=== PATIENT | male | born 1980 | race Caucasian/White ===

== ENCOUNTER → 2019-10-22 11:49 | Outpatient (CLI) | payer OTHER, SELFPAY ==
[2019-10-22 15:15] LABS: Absolute Lymphocyte Count 1.74 X10^3/uL (0.83-4.51); Absolute Neutrophil Count 3.1 X10^3/uL (2.0-7.7); Basophil# 0.03 X10^3/uL; Basophil% 0.6 % (0-1); Eosinophil# 0.09 X10^3/uL; Eosinophils% 1.7 % (0-5); Hematocrit 46.3 % (40-54); Hemoglobin 15.4 g/dL (13.0-16.5); Lymphocyte # 1.74 X10^3/ul (4.0); Lymphocyte % 32.6 % (19-41); Mean Corp Hgb Conc 33.3 g/dL (32-36); Mean Corpuscular Hgb 30.5 pg (27.0-32.0); Mean Corpuscular Volume 91.7 fL (80-94); Mean Platelet Vol. 11.5 fl (6.2-12.0); Monocyte# 0.39 X10^3/uL; Monocyte% 7.3 % (0-10); NRBC Flagged by Analyzer 0 % (0-5); Neutrophil # 3.08 X10^3/uL (2.7-7.7); Neutrophil % 57.6 % (47-70); Platelet Count 219 K/mm3 (150-450); RBC Distribution Width SD 40.1 fl (35.1-43.9); Red Blood Count 5.05 M/mm3 (4.6-6.2); White Blood Count 5.3 K/mm3 (4.4-11.0)
[2019-10-22 15:47] LABS: ALB/GLOB Ratio 1.3 RATIO (0.9-2.4); AST(SGOT) 24 U/L (15-37); Alanine Aminotransfer ALT/SGPT 32 U/L (16-61); Albumin, Serum 4.3 g/dL (3.2-5.0); Alkaline Phosphatase 67 U/L (45-117); Anion Gap 5 (5-15); BUN 14 mg/dL (7-18); Calcium,Total 8.8 mg/dL (8.5-10.1); Chloride 103 mmol/L (98-107); Cholesterol 211 mg/dL (200); Creatinine, Serum 0.94 mg/dL (0.70-1.30); EST Glomerular Filtration Rate 96 mL/min (>60); Est Glom Filt Rate - Afr Amer 116 mL/min (>60); Globulin 3.3 g/dL (2.2-4.2); Glucose 79 mg/dL (74-106); High Density Lipoprotein 53 mg/dL; Potassium 3.7 mmol/L (3.5-5.1); Protein, Total 7.6 g/dL (6.4-8.2); Sodium Level 137 mmol/L (136-145); Thyroid Stim Hormone (TSH) 2.78 uIU/mL (0.358-3.74); Triglycerides 132 mg/dL; Very Low Density Lipoprotein 26 mg/dL (5-40)
== END ==
PROVIDERS: PCP Family Medicine; Referring Provider Family Medicine; Visit Provider Family Medicine
DX: Z00.00 Encounter for general adult medical examination without abnormal findings (principal)
CPT/HCPCS: 36415; 80053; 80061; 84443; 85025

== ENCOUNTER 2020-10-29 13:31 | Emergency (ER) | payer SELFPAY ==
[2020-10-29 13:32] VITALS: BP 120/72; PULSE 71; RESP 16; TEMP 36.4; O2SAT 100; BMI 26.9
--- NOTE | 2020-10-29 14:04 | CT_ITS ---
EXAM: CT HEAD WITHOUT INTRAVENOUS CONTRAST : 1980 CLINICAL INDICATION: headache TECHNIQUE: Multiple axial images were obtained of the head without intravenous contrast. This CT exam was performed using one or more of the following dose reduction techniques: automated exposure control, adjustment of the mA and/or kV according to patient size, and/or use of iterative reconstruction technique. This report was created using [employer] report generation technology. COMPARISON: None. FINDINGS: BRAIN AND EXTRA-AXIAL SPACES: Unremarkable. No intra- or extra-axial hemorrhage. No evidence of acute infarct. No intracranial mass or mass effect. There is preservation of the ruiz/white matter interface. Posterior fossa structures are unremarkable. Ventricles are appropriate for age. No hydrocephalus. Basal cisterns are patent. BONES/JOINTS: Unremarkable. No discrete lytic or blastic abnormalities. SINUSES: Unremarkable as visualized. Clear. MASTOID AIR CELLS: Unremarkable. Clear. ORBITS: Visualized globes, extraocular muscles, optic nerves and retrobulbar fat appear unremarkable. CT/Brain/Head without Contrast IMPRESSION: Negative head/brain CT without intravenous contrast. Individualized dose optimization techniques were used for this CT. at 1550 Reported and signed by: Carlos Mcconnell MD Electronically Signed: Carlos Mcconnell MD at 15:49 EDT Tel , Service support ,
--- NOTE | 2020-10-29 14:06 | EX.ED.VIS.HA ---
HPI History of Present Illness Chief Complaint: Headache Detail of Chief Complaint: Headache behind right eye. Informant: patient Onset/Context/Timing Onset: Today Context: Gradual Timing: Continuous Quality -Headache: Positive for Sharp Current Severity: Moderate Maximum Severity: Moderate Associated Symptoms/Injury Associated Symptoms: Positive for Nausea and Vomiting; Negative for Fever, Sore Throat, Sinus Pressure, Numbness, Tingling, Preceding Aura, Visual Changes, Blurred Vision, Photophobia and Visual Loss Injury - BALLARD: Negative for Direct Trauma, Fall and Assault Narrative Narrative: 40-year-old male no sniffing past medical history. States he was diagnosed with Covid about 12 days ago. About a week ago his symptoms are resolving. He did have fever and URI symptoms during that time. That is since resolved. Said he was doing better. Today he started getting headache behind his right eye. Associated with nausea vomiting. Denies any trauma. He is on no blood thinners. He denies any neck pain. He is never had a migraine. There is no family history of headaches or family history of brain aneurysms or intracranial bleeds. Prior similar symptoms: No Recent Illness/Hospitalization: No PFSH PFSH no medical history Home Medications NK 10/29/20 [History Last Taken Unknown] Allergy/AdvReac Type Severity Reaction Status Date / Time No Known Allergies Allergy Verified 10/29/20 13:34 Surgical History (Updated 10/29/20 @ 14:25 by Tucker Lira) History of tonsillectomy Social History Smoking Status: Never smoker ROS ROS ED ROS Narrative Headache with nausea and vomiting Review of Systems ROS Unobtainable: Denies due to encephalopathy Constitutional Constitutional ED: Reports chills; Denies fever(s) Eyes Eyes: Denies change in vision ENT ENT ED: Denies ear pain or sore throat Cardiovascular Cardiovascular: Denies chest pain Respiratory/Chest Respiratory/Chest: Denies cough or dyspnea Gastrointestinal Gastrointestinal: Reports nausea and vomiting; Denies abdominal pain or diarrhea Genitourinary Genitourinary ED: Denies dysuria Musculoskeletal Musculoskeletal: Denies myalgias Integumentary Denies rash Neurologic Neurologic: Reports headache(s) Psychiatric Psychiatric: Denies depression Endocrine Endocrinology: Denies polyuria Hematologic/Lymphatic Hematologic/Lymphatic: Denies easy bruising Allergic/Immunologic Allergic/Immunologic ED: Denies urticaria EXAM Physical Exam Narrative Exam Narrative: 40-year-old male no acute distress. Vital signs stable afebrile. Initial blood pressure 120/72. H EENT exam unremarkable. Pupils round to light his motions are intact no facial droop. Normal speech. No signs of trauma to his face or scalp. Neck nontender no lymphadenopathy no meningismus. Lungs clear to auscultation bilaterally. Heart regular rhythm no murmur. Abdomen soft nontender. Moving all 4 extremities. Neurovascular intact. Equal symmetrical 5-5 academic records specialist strength. Dorsi plantarflexion intact. Back nontender. Skin normal no rashes no petechiae or purpura. Neurologically is awake and alert with no focal motor or sensory deficits. NIH is 0. Fingertip to nose within normal limits bilaterally. Rapid hand movements normal. Const Vital Signs: 10/29/20 13:32 Temperature 97.5 F L Temperature Source Temporal Pulse Rate 71 Respiratory Rate 16 Blood Pressure 120/72 Blood Pressure Mean 88 Pulse Ox 100 Oxygen Delivery Method Room Air Positive well nourished and well developed General Appearance ED: well developed and NAD HEENT Reports normocephalic and moist mucous membranes atraumatic; Negative for trauma or tenderness Eyes PERRL and EOMs intact bilaterally Neck no lymphadenopathy, supple, no meningeal signs and no JVD General: Negative for tenderness Resp normal respiratory effort and clear to auscultation bilaterally Cardio regular rate, regular rhythm, S1 normal heart sound, S2 normal heart sound and no murmurs GI non-tender and non-distended Auscultation: normoactive bowel sounds Palpation: soft, tender and guarding; Negative for firm or rigid Back/Spine no CVA tenderness General Back: CVA tenderness; Negative for tenderness Cervical Spine: Negative for cervical spine tenderness Extremity normal to inspection, full ROM and normal capillary refill General Extremety ED: Negative for edema or tenderness General Extremity: Negative for edema Neuro oriented x3, CN's II-XII intact bilaterally and no sensory deficits noted Sensorium / Orientation: awake, alert, oriented to person, oriented to place and oriented to time; Negative for orientation impaired, lethargic or stuporous Sensory Exam: No sensory level loss detected Motor Exam: strength 5/5 throughout Psych mental status grossly normal Skin Lesions: no lesions Rashes: no rashes MDM MDM MDM Narrative Medical decision making narrative: 40-year-old male recent incurvated complaining of a headache which sounds like a migraine but he has no history of migraines. There is no family history. CAT scan labs are being obtained. He will be treated with IV fluids, IV Toradol, Zofran and Benadryl. Repeat exam at 3:45 PM patient doing well. Headache is resolved. Neurologic exam remains normal. Labs are unremarkable. CT of his brain awaiting formal CAT scan read I have reviewed it myself. I do not see any acute bleed or mass or any acute abnormality. Awaiting the formal radiology interpretation. Patient be discharged to home. History is consistent with a migraine headache which did resolve with the typical medications were used to treat migraines. Lab Data Attestation: I reviewed the patient's lab results. Lab results narrative: CBC White count of 10. Hemoglobin 15. No bands. Electrolytes unremarkable gap of 6 normal creatinine. Glucose 95. Both the CBC and BMP are unremarkable. Labs: Laboratory Results - last 24 hr 10/29/20 10/29/20 14:10 14:10 WBC 10.8 RBC 5.14 Hgb 15.5 Hct 45.4 MCV 88.3 MCH 30.2 MCHC 34.1 RDW Std Deviation 37.2 RDW Coeff of Katie 11.5 L Plt Count 189 MPV 10.2 Immature Gran % (Auto) 0.500 Neut % (Auto) 84.7 H Lymph % (Auto) 9.7 L Gray % (Auto) 4.0 Eos % (Auto) 0.8 Baso % (Auto) 0.3 Absolute Neuts (auto) 9.2 H Absolute Lymphs (auto) 1.05 Nucleated RBC % 0 Sodium 140 Potassium 3.7 Chloride 105 Carbon Dioxide 29.0 Anion Gap 6 BUN 13 Creatinine 0.80 Estim Creat Clear Calc 107.84 Est GFR (MDRD) Af Amer 139 Est GFR (MDRD) Non-Af 115 BUN/Creatinine Ratio 16.4 Glucose 95 Calcium 8.5 Discharge Plan Triage Chief Complaint: Headache ED Provider: Mamadou Kiser Dx/Rx/DC Orders Instructions: ED, Migraine (Classical) Prescriptions: No Action NK RF: 0 Primary Care Provider: Slade Ugalde Referrals: Slade Ugalde MD [Primary Care Provider] - As Needed Activity Restrictions/Additional Instructions: The way to describe the headache being one-sided behind her eyes typical often for migraine headache. You also responded well to the medications were used for migraines. Tylenol and Motrin at home for pain. Plenty of fluids and caffeine. Follow-up with your doctor if you get recurrent headaches there are medications they can put you on if this does rim turning finisher to be migraines. Hard to diagnose that on just one episode. Disposition Disposition: Home, Self Care
[2020-10-29 14:15] LABS: Absolute Lymphocyte Count 1.05 X10^3/uL (0.83-4.51); Absolute Neutrophil Count 9.2 X10^3/uL (2.0-7.7); Basophil# 0.03 X10^3/uL; Basophil% 0.3 % (0-1); Eosinophil# 0.09 X10^3/uL; Eosinophils% 0.8 % (0-5); Hematocrit 45.4 % (40-54); Hemoglobin 15.5 g/dL (13.0-16.5); Lymphocyte # 1.05 X10^3/ul (0.83-4.51); Lymphocyte % 9.7 % (19-41); Mean Corp Hgb Conc 34.1 g/dL (32-36); Mean Corpuscular Hgb 30.2 pg (27.0-32.0); Mean Corpuscular Volume 88.3 fL (80-94); Mean Platelet Vol. 10.2 fl (6.2-12.0); Monocyte# 0.43 X10^3/uL; NRBC Flagged by Analyzer 0 % (0-5); Neutrophil # 9.17 X10^3/uL (2.7-7.7); Neutrophil % 84.7 % (47-70); Platelet Count 189 K/mm3 (150-450); RBC Distribution Width CV 11.5 % (11.6-14.6); RBC Distribution Width SD 37.2 fl (35.1-43.9); Red Blood Count 5.14 M/mm3 (4.6-6.2); White Blood Count 10.8 K/mm3 (4.4-11.0)
[2020-10-29] MEDS: DiphenhydrAMINE 50 MG/ML Syringe 25 MG IV (14:17)
[2020-10-29] MEDS: 0.9% Normal Saline 1,000 ML 1000 ML IV (14:17)
[2020-10-29] MEDS: Ketorolac 30 MG/ML Syringe IV (14:20)
[2020-10-29] MEDS: Ondansetron 4 MG/2 ML Vial IV (14:22)
[2020-10-29 14:27] LABS: Anion Gap 6 (5-15); BUN 13 mg/dL (7-18); BUN/Creat Ratio 16.4 RATIO (10-20); Calcium,Total 8.5 mg/dL (8.5-10.1); Chloride 105 mmol/L (98-107); EST Glomerular Filtration Rate 115 mL/min (>60); Est Glom Filt Rate - Afr Amer 139 mL/min (>60); Estimated Creatinine Clearance 107.84 ml/min; Glucose 95 mg/dL (74-106); Potassium 3.7 mmol/L (3.5-5.1); Sodium Level 140 mmol/L (136-145)
== END 2020-10-29 16:08 | disposition home or self-care (01) ==
PROVIDERS: Emergency Provider Emergency Medicine; PCP Family Medicine
DX: R51.9 Headache, unspecified (principal); R11.2 Nausea with vomiting, unspecified; Z86.16 Personal history of COVID-19
CPT/HCPCS: 70450; 80048; 85025; 96361; 96374; 96375; 99283; J7030; A4216; J2405

== ENCOUNTER → 2022-03-07 | Outpatient (CLI) | payer SELFPAY ==
[2022-03-07 18:20] LABS: Absolute Lymphocyte Count 2.12 X10^3/uL (0.83-4.51); Absolute Neutrophil Count 2.9 X10^3/uL (2.0-7.7); Basophil# 0.04 X10^3/uL; Basophil% 0.7 % (0-1); Eosinophil# 0.13 X10^3/uL; Eosinophils% 2.3 % (0-5); Hematocrit 46.4 % (40-54); Lymphocyte # 2.12 X10^3/ul (0.83-4.51); Lymphocyte % 37.1 % (19-41); Mean Corp Hgb Conc 34.5 g/dL (32-36); Mean Corpuscular Hgb 30.8 pg (27.0-32.0); Mean Corpuscular Volume 89.2 fL (80-94); Mean Platelet Vol. 11.6 fl (6.2-12.0); Monocyte% 8.7 % (0-10); NRBC Flagged by Analyzer 0 % (0-5); Neutrophil # 2.92 X10^3/uL (2.7-7.7); Platelet Count 226 K/mm3 (150-450); RBC Distribution Width CV 11.9 % (11.6-14.6); RBC Distribution Width SD 38.8 fl (35.1-43.9); White Blood Count 5.7 K/mm3 (4.4-11.0)
[2022-03-07 18:34] LABS: ALB/GLOB Ratio 1.6 RATIO (0.9-2.4); AST(SGOT) 18 U/L (15-37); Alanine Aminotransfer ALT/SGPT 33 U/L (16-61); Albumin, Serum 4.2 g/dL (3.2-5.0); Alkaline Phosphatase 66 U/L (45-117); Anion Gap 4 (5-15); BUN 17 mg/dL (7-18); BUN/Creat Ratio 17.8 RATIO (10-20); Calcium,Total 9.1 mg/dL (8.5-10.1); Chloride 105 mmol/L (98-107); Cholesterol 193 mg/dL (200); Creatinine, Serum 0.96 mg/dL (0.70-1.30); EST Glomerular Filtration Rate 93 mL/min (>60); Est Glom Filt Rate - Afr Amer 112 mL/min (>60); Globulin 2.7 g/dL (2.2-4.2); Glucose 75 mg/dL (74-106); High Density Lipoprotein 55 mg/dL; Potassium 4.2 mmol/L (3.5-5.1); Protein, Total 6.9 g/dL (6.4-8.2); Sodium Level 139 mmol/L (136-145); Thyroid Stim Hormone (TSH) 1.33 uIU/mL (0.358-3.74); Triglycerides 179 mg/dL; Very Low Density Lipoprotein 36 mg/dL (5-40)
== END | disposition home or self-care (01) ==
LOC: MFPLAB 15:11
PROVIDERS: PCP Family Medicine; Referring Provider Family Medicine; Visit Provider Family Medicine
DX: Z00.00 Encounter for general adult medical examination without abnormal findings (principal)
CPT/HCPCS: 36415; 80053; 80061; 84443; 85025